=== PATIENT | male | born 2000 | race African-American/Black ===

== ENCOUNTER 2020-12-16 14:26 | Emergency (ER) | payer OTHER, SELFPAY ==
[2020-12-16 14:36] VITALS: BP 102/46; BP 132/86; PULSE 65; PULSE 78; RESP 17; TEMP 37.7; O2SAT 100; O2SAT 99; BMI 19.9
--- NOTE | 2020-12-16 15:01 | ED_ITS ---
HPI - General Adult General Chief complaint: Nausea/Vomiting/Diarrhea Stated complaint: N/V Time Seen by Provider: 12/16/20 14:40 Source: patient Mode of arrival: ambulatory Limitations: no limitations History of Present Illness HPI narrative: 20-year-old male who presents emergency department for evaluation nausea and vomiting. The patient states the symptoms began this morning at 7:30 a.m.. He states he has had constant nausea with multiple episodes of vomiting. He states that he is vomiting small amounts of yellow liquid. He has not noticed any blood in his emesis. The patient states that he has felt hot and cold and states that he has been sweating all day. He denied any diarrhea or changes bowel movements. He denied fever, chills, sore throat, rhinorrhea, chest pain, shortness of breath, myalgias arthralgias. He has not had any loss of sense of taste or smell. Related Data Previous Rx's Medication Instructions Recorded metoclopramide HCl [Reglan] 10 mg PO Q6H PRN #14 tab 12/16/20 Allergies Allergy/AdvReac Type Severity Reaction Status Date / Time No Known Allergies Allergy Unverified 07/06/20 18:09 Review of Systems Review of Systems: Yes all other systems are reviewed and are negative Neurologic: Reports Abnormal speech present [facility] Past Medical History FOR[facility], [facility] Narrative: Patient has no chronic medical problems. He denies tobacco use. He states that he rarely drinks alcohol. He smokes marijuana frequently, daily. Medical History (Updated 12/16/20 @ 16:36 by Khoa Archuelta MD) Healthy adult Social History Social History Alcohol intake: never Smoking Status: Never smoker Use of substances other than those prescribed or required for medical reasons: Yes Substance Use Type: Marijuana Advance Directives: No Advance Directives Information Provided: Yes Physical Exam 2 Vital Signs: Vital Signs: Last Vital Signs Temp 100 F 12/16/20 15: Pulse 77 12/16/20 15:21 Resp 17 12/16/20 15:21 BP 115/58 L 12/16/20 15:21 Pulse Ox 100 12/16/20 15:21 Body Mass Index 19.9 Const: General: cooperative and other (Patient actively vomiting) Orientation/consciousness: oriented to person and oriented to place Limitations: no limitations HENMT: Head: Yes normal to inspection, Yes normocephalic and Yes atraumatic Ears: external ears normal General nose exam: Normal external nose present Face and sinus: Yes normal facial exam Mouth: Normal oral and palatal mucosa present Throat: Yes posterior oropharynx normal Eyes: Periorbital: periorbital findings normal Eyelids: Yes eyelids normal Conjunctivae: conjunctivae normal Sclerae: sclerae normal Corneas: corneas normal Pupils: Equal, round and reactive pupils present Direct O phthalmoscopy: normal light reflex Neck: Neck: Yes full ROM, Yes no lymphadenopathy, Yes no meningeal signs, Yes trachea midline and Yes supple Chest: Chest palpation & inspection: normal inspection of the chest and normal palpation of entire chest wall Resp: Effort & Inspection: normal respiratory effort and able to speak in complete sentences Auscultation: clear to auscultation bilaterally Cardio: Rate: regular rate Rhythm: regular rhythm Heart sounds: S1 normal heart sound present, S2 normal heart sound present and no murmurs GI: Inspection: Yes normal to inspection Palpation (GI): Soft to palpation, Tenderness to palpation present (GI) in the epigastrum ([id number]), no guarding, not rigid and No hepatosplenomegaly present : General: Yes no CVA tenderness Back/Spine/Pelvis: Back: no CVA tenderness Cervical Spine: normal cervical lordosis Thoracic/Lumbar Spine: thoracic and lumbar spine normal to inspection Skin: Lesions: no lesions Rashes: no rashes Wounds: no wounds Neuro: General: oriented to person, oriented to place and no meningeal signs Cranial nerves: Yes Equal, round and reactive pupils present Cognition (Neuro): normal cognition Speech: Abnormal speech present Motor exam (neuro): 5/5 motor strength present throughout Extrem: General: Yes normal to inspection and Yes full ROM Psych: Appearance: well kempt Mental Status: mental status grossly normal Speech and movement: Normal speech and movement present Affect: normal affect Attitude: cooperative Thought process: Normal thought process present Thought content: Normal thought content present Course Course Course Narrative: 20-year-old male who presents emergency department for eval uation of nausea, vomiting, abdominal pain, diaphoresis. Patient's examination did reveal that the patient was actively vomiting here in the emergency department. He had mild to moderate midepigastric tenderness. Differential includes cannabis hyperemesis syndrome, acute viral syndrome. I did order laboratory evaluation of the patient. The patient's symptoms were treated with Toradol 30 mg IV, Reglan 10 mg IV and Benadryl 50 mg IV. He was also ordered to get normal saline IV x1 L. 1631: The patient's laboratory evaluation was unremarkable. The patient is feeling significantly better after the above treatment. I did discuss viral syndrome verses cannabis hyperemesis syndrome with the patient. This is the patient's 1st event of intractable vomiting but I did recommend that he should consider stopping using marijuana daily. The patient was discharged home with the following regimen: Ibuprofen 400 mg, Reglan 10 mg, Benadryl 50 mg every 6 hours as needed for nausea, vomiting and abdominal pain. He was given verbal and printed instructions and discharged home. Medical Decision Making Lab Data Result diagrams: 12/16/20 15:35 12/16/20 15:35 Labs: Lab Results 12/16/20 12/16/20 Range/Units 15:35 15:35 WBC 9.0 (4.8-10.8) X10*3/uL RBC 4.65 (4.60-5.80) X10*6/uL Hgb 14.3 (14.0-18.0) g/dl Hct 43.8 (42-52) % MCV 94.2 (80-98) fL MCH 30.8 (27.0-33.0) pg MCHC 32.6 (31.0-36.0) g/dl RDW 12.1 (11.0-16.0) % Plt Count 291 (160-400) X10*3/uL MPV 8.8 L (9.4-12.4) fL Immature Gran % (Auto) 0.6 H (0.0-0.4) % Neut % (Auto) 84.1 H (45-73) % Lymph % (Auto) 5.5 L (20-40) % Turner % (Auto) 9.6 (2-11) % Eos % (Auto) 0.1 (0-4) % Baso % (Auto) 0.1 (0-2) % Lymph # (Auto) 0.5 L (1.2-4.9) X10*3/uL Turner # (Auto) 0.9 (0.1-1.2) X10*3/uL Eos # (Auto) 0.0 (0.0-0.4) X10*3/uL Baso # (Auto) 0.0 (0.0-0.2) X10*3/uL Abs Immat Gran (auto) 0.05 H (0.00-0.03) X10*3/uL Absolute Neuts (auto) 7.6 (2.0-8.3) X10*3/uL Absolute Nucleated RBC 0.000 (0.0-0.012) X10*3/uL Nucleated RBC % (auto) 0.0 (0.0-0.2) /100WBC Smear Tech's Comments VERIFIED Sodium 141 (135-145) mmol/L Potassium 5.4 H (3.3-5.1) mmol/L Chloride 104 (96-108) mmol/L Carbon Dioxide 26 (22-29) mmol/L Anion Gap 16 (12-20) BUN 14 (9-16) mg/dL Creatinine 1.00 (0.5-1.4) mg/dL Estim Creat Clear Calc 109.2 Estimated GFR > 60 Random Glucose 117 H (60-115) mg/dL Calcium 10.2 (8.4-10.2) mg/dL Total Bilirubin 0.4 (0.0-1.0) mg/dL AST 23 (5-37) U/L ALT 22 (0-40) U/L Alkaline Phosphatase 91 (39-117) U/L Total Protein 7.7 (6.5-8.0) g/dL Albumin 5.0 (3.5-5.0) g/dL Lipase 17 (8-78) U/L Discharge Plan Discharge Clinical Impression: Abdominal pain Qualifiers: Abdominal location: epigastric Qualified Code(s): R10.13 - Epigastric pain Vomiting Qualifiers: Vomiting type: unspecified Vomiting Intractability: intractable Nausea presence: with nausea Qualified Code(s): R11.2 - Nausea with vomiting, unspecified Patient Disposition: Home, Self-Care Instructions: Cannabis Abuse (ED), Cyclic Vomiting Syndrome (ED) Additional Instructions: Your blood work was unremarkable. Your symptoms could be secondary to food poisoning, a viral infection or cannabis hyperemesis syndrome (vomiting that is triggered by daily marijuana use). Take the following 3 medications together every 6 hours as needed for nausea, vomiting abdominal pain: Reglan (metoclopramide) 10 mg, 1 pill orally Benadryl 25 mg, 2 pills orally Ibuprofen 200 mg, 2 pills orally. These medications will make you sleepy, do not drive or work after taking his medications. Follow-up with your doctor in 2 days. Please return to the emergency department if your symptoms get worse or if you develop any symptoms that are concerning to you. Prescriptions: New metoclopramide HCl [Reglan] 10 mg tablet 10 mg PO Q6H PRN (Reason: nausea and vomiting) Qty: 14 RF: 0
[2020-12-16 15:21] VITALS: BP 115/58; PULSE 77; RESP 17; TEMP 37.7; O2SAT 100
[2020-12-16] MEDS: diphenhydrAMINE HCL 50 MG/ML VIAL IVPUSH (15:43)
[2020-12-16] MEDS: Ketorolac Tromethamine 30 MG/ML VIAL IVPUSH (15:43)
[2020-12-16] MEDS: 0.9 % Sodium Chloride 1,000 ML 999 ML IV (15:43)
[2020-12-16] MEDS: Metoclopramide HCl 10 MG/2 ML VIAL IVPUSH (15:43)
[2020-12-16 15:54] LABS: Basophils Percent Auto 0.1 % (0-2); Eosinophils Percent Auto 0.1 % (0-4); Hematocrit 43.8 % (42-52); Hemoglobin 14.3 g/dl (14.0-18.0); Imm Gran Abs Auto 0.05 X10*3/uL (0.00-0.03); Imm Gran Pct Auto 0.6 % (0.0-0.4); Lymphocytes Absolute Auto 0.5 X10*3/uL (1.2-4.9); Lymphocytes Percent Auto 5.5 % (20-40); MANUAL DIFF FLAG SCAN; Mean Corpuscular HGB Conc 32.6 g/dl (31.0-36.0); Mean Corpuscular Hemoglobin 30.8 pg (27.0-33.0); Mean Corpuscular Volume 94.2 fL (80-98); Mean Platelet Volume 8.8 fL (9.4-12.4); Monocytes Absolute Auto 0.9 X10*3/uL (0.1-1.2); Monocytes Percent Auto 9.6 % (2-11); Neutrophils Absolute Auto 7.6 X10*3/uL (2.0-8.3); Neutrophils Percent Auto 84.1 % (45-73); Platelet Count 291 X10*3/uL (160-400); Red Blood Count 4.65 X10*6/uL (4.60-5.80); Red Cell Distribution Width 12.1 % (11.0-16.0); SCAN SMEAR FLAG 1
[2020-12-16 16:12] LABS: SLIDE REVIEW VERIFIED
[2020-12-16 16:15] LABS: Alanine Aminotransferase 22 U/L (0-40); Alkaline Phosphatase 91 U/L (39-117); Anion Gap 16 (12-20); Aspartate Amino Transferase 23 U/L (5-37); Bilirubin Total 0.4 mg/dL (0.0-1.0); Blood Urea Nitrogen 14 mg/dL (9-16); Calcium 10.2 mg/dL (8.4-10.2); Carbon Dioxide 26 mmol/L (22-29); Chloride 104 mmol/L (96-108); Creatinine Clr Calc Pharmacy 109.2; Estimated Glomerular Filt Rate > 60; Glucose Random 117 mg/dL (60-115); Lipase 17 U/L (8-78); Potassium 5.4 mmol/L (3.3-5.1); Sodium 141 mmol/L (135-145); Total Protein 7.7 g/dL (6.5-8.0)
== END 2020-12-16 17:07 | disposition home or self-care (01) ==
PROVIDERS: Emergency Provider Emergency Medicine Emergency Medical Services; PCP Pediatrics
DX: R10.13 Epigastric pain (principal); R11.2 Nausea with vomiting, unspecified; F12.90 Cannabis use, unspecified, uncomplicated
CPT/HCPCS: 36415; 80053; 83690; 85025; 96361; 96374; 96375; 99284; 99285; J1200; J1885; J2765